=== PATIENT | female | born 1975 ===

== ENCOUNTER → 2022-06-13 12:52 | Outpatient (BNVA) | payer OTHER, SELFPAY | PROVIDERS: PCP Internal Medicine; Visit Provider Physician Assistant Surgical | DX: E66.01 Morbid (severe) obesity due to excess calories (principal); Z68.42 Body mass index [BMI] 45.0-49.9, adult | CPT/HCPCS: 99202 ==

== ENCOUNTER 2022-07-11 07:26 | Outpatient (REF) | payer OTHER, SELFPAY ==
--- NOTE | ~2022-07-11 | XR_ITS ---
EXAMINATION: XR CHEST CLINICAL INFORMATION: Morbid obesity COMPARISON: None TECHNIQUE: 2 views of the chest were obtained. FINDINGS: No significant abnormality is noted involving the heart, lungs, mediastinum, bony thorax or soft tissues. XR/XR chest 2V IMPRESSION: No acute disease.
--- NOTE | 2022-07-11 07:35 | ECG_ITS ---
Test Reason : obesity Blood Pressure : / mmHG Vent. Rate : 063 BPM Atrial Rate : 063 BPM P-R Int : 178 ms QRS Dur : 088 ms QT Int : 412 ms P-R-T Axes : 043 020 035 degrees QTc Int : 421 ms Normal sinus rhythm Normal ECG No previous ECGs available Referred By: Alejo Dugan Electronically Signed By:TED MARTINEZ
[2022-07-11 07:47] LABS: MANUAL DIFF FLAG NO
[2022-07-11 08:07] LABS: Basophils Percent Auto 0.3 % (0-2); Eosinophils Absolute Auto 0.1 X10*3/uL (0.0-0.4); Eosinophils Percent Auto 1.2 % (0-4); Hematocrit 38.2 % (37.0-47.0); Hemoglobin 12.4 g/dl (12.0-16.0); Imm Gran Abs Auto 0.02 X10*3/uL (0.00-0.03); Imm Gran Pct Auto 0.3 % (0.0-0.4); Lymphocytes Absolute Auto 1.1 X10*3/uL (1.2-4.9); Lymphocytes Percent Auto 18.5 % (20-40); Mean Corpuscular HGB Conc 32.5 g/dl (31.0-35.0); Mean Corpuscular Hemoglobin 26.5 pg (27.0-33.0); Mean Corpuscular Volume 81.6 fL (80.0-98.0); Mean Platelet Volume 9.8 fL (9.4-12.3); Monocytes Absolute Auto 0.4 X10*3/uL (0.1-1.2); Monocytes Percent Auto 6.8 % (2-11); Neutrophils Absolute Auto 4.3 x10*3/uL (2.0-8.3); Neutrophils Percent Auto 72.9 % (45-73); Platelet Count 214 X10*3/uL (160-400); Red Blood Count 4.68 X10*6/uL (4.20-5.50); Red Cell Distribution Width 14.8 % (11.0-16.0); White Blood Count 5.8 X10*3/uL (4.8-10.8)
[2022-07-11 08:34] LABS: Alanine Aminotransferase 13 U/L (0-31); Albumin Level 3.9 g/dL (3.5-5.0); Alkaline Phosphatase 98 U/L (39-117); Anion Gap 14 (12-20); Aspartate Amino Transferase 14 U/L (5-31); Bilirubin Total 0.4 mg/dL (0.0-1.0); Blood Urea Nitrogen 14 mg/dL (9-16); C Reactive Protein 0.98 mg/dL (< or = 0.50); Calcium 8.3 mg/dL (8.4-10.2); Carbon Dioxide 24 mmol/L (22-29); Chloride 105 mmol/L (96-108); Cholesterol 177 mg/dL; Estimated Glomerular Filt Rate > 60; Glucose Random 95 mg/dL (60-115); HDL Cholesterol 44 mg/dL; Iron 72 mcg/dL (30-160); LDL Cholesterol Calculated 122 mg/dl; Percent Iron Saturation 25 % (15-50); Potassium 3.9 mmol/L (3.3-5.1); Sodium 139 mmol/L (135-145); Total Iron Binding Capacity 290 mcg/dL (228-428); Total Protein 6.8 g/dL (6.5-8.0); Triglycerides 57 mg/dL; Unsaturated Iron Binding 218 ug/dL
[2022-07-11 09:01] LABS: Ferritin 21 ng/mL (10-250); TSH reflex Free T4 1.27 uIU/mL (0.32-4.0); Vitamin D 25-OH Total 10.7 ng/mL (>30)
[2022-07-11 09:07] LABS: Folate 11.2 ng/mL (> or = 4.0); Vitamin B12 361 pg/mL (200-900)
[2022-07-11 09:25] LABS: Estimated Average Glucose 105 mg/dL; Hemoglobin A1c % 5.3 %
[2022-07-11 10:33] LABS: Insulin 8 uU/mL (2-29)
[2022-07-13 16:57] LABS: Calcium (PTHI) 8.4 mg/dL (8.6-10.2); PTHI 136 pg/mL (16-77)
[2022-07-16 05:56] LABS: Zinc 67 mcg/dL (60-130)
[2022-07-17 21:17] LABS: Vitamin A 31 mcg/dL (38-98)
[2022-07-18 12:17] LABS: Vitamin B1 <6 nmol/L (8-30)
== END 2022-07-11 07:27 | disposition home or self-care (01) ==
LOC: HO.XRAY 07:26
PROVIDERS: PCP Internal Medicine; Visit Provider Physician Assistant Surgical
DX: E66.01 Morbid (severe) obesity due to excess calories (principal)
CPT/HCPCS: 36415; 71046; 80053; 80061; 82306; 82607; 82728; 82746; 83013; 83036; 83525; 83540; 83970; 84425; 84443; 84590; 84630; 85025; 86140; 93005; 99211

== ENCOUNTER 2022-07-11 16:03 | Outpatient (REF) | payer OTHER, SELFPAY ==
[2022-07-12 11:47] LABS: H Pylori Breath Test Negative (Negative)
== END 2022-07-11 16:04 | disposition home or self-care (01) ==
LOC: HO.LNP 16:03
PROVIDERS: Visit Provider Physician Assistant Surgical
DX: Z13.89 Encounter for screening for other disorder (principal)
CPT/HCPCS: 83013

== ENCOUNTER 2022-08-06 09:09 | Outpatient (REF) | payer OTHER, SELFPAY ==
--- NOTE | ~2022-08-06 | US_ITS ---
EXAMINATION: US COMPLETE ABDOMEN WITH LIVER ELASTOGRAPHY CLINICAL INFORMATION: Morbid obesity due to excess calories COMPARISON: None. TECHNIQUE: Real-time imaging of the abdominal viscera. Noninvasive ultrasound liver fibrosis assessment is performed using Ruthann ElastPQ point quantification shear wave elastography (2D-SWE) with a C5-2 MHz transducer. Multiple elastography samples are obtained. FINDINGS: PANCREAS: Normal. ABDOMINAL AORTA: The proximal and distal aortic segments are normal in caliber. The mid aorta is obscured by gas. INFERIOR VENA CAVA: Visualized portions are normal. LIVER: The liver demonstrates normal shape with increased echogenicity. Borderline hepatomegaly. No solid lesion or intrahepatic biliary duct dilatation. Multiple hepatic cysts are identified. The largest measures up to 2.3 cm. The right lobe measures 19.1 cm in length. The left lobe measures 9.5 cm in length. Portal flow is towards the liver (hepatopetal). Shear wave liver elastography median stiffness is 1.8 m/s (reference: normal median stiffness is 1.3 m/s or less). IQR/median stiffness to assess sampling precision is 0.08 (reference: good quality data set is IQR/median stiffness of 0.15 or less). GALLBLADDER: Cholecystectomy. COMMON BILE DUCT: Dilated in caliber measuring 1 cm in diameter. RIGHT KIDNEY: Normal. No hydronephrosis. No renal calculi or focal parenchymal lesions. The kidney measures 10.2 cm in maximum dimension. LEFT KIDNEY: Normal. No hydronephrosis. No renal calculi or focal parenchymal lesions. The kidney measures 10.3 cm in maximum dimension. SPLEEN: Normal. The spleen measures 11.3 cm in maximum dimension. FREE FLUID: None. US/US abdomen comp w elastography IMPRESSION: 1. Borderline hepatomegaly with hepatic steatosis. 2. Liver elastography: Measurements are suggestive of compensated advanced chronic liver disease but need further test for confirmation. REFERENCE: Society of Radiologists in Ultrasound Liver Stiffness Thresholds (2020): LIVER STIFFNESS THRESHOLDS: *Liver Stiffness equal or less than 1.3 m/s: High probability of being normal. *Liver Stiffness less than 1.7 m/s: In the absence of other known clinical signs, rules out compensated advanced chronic liver disease. *Liver Stiffness 1.7-2.1 m/s: Suggestive of compensated advanced chronic liver disease but need further test for confirmation. *Liver Stiffness over 2.1 m/s: Rules in compensated advanced chronic liver disease. *Liver Stiffness over 2.4 m/s: Suggestive of clinically significant portal hypertension. QUALITY OF DATA SET: *IQR/Median value equal or less than 0.15 implies a quality data set. *IQR/Median value over 0.15 implies a poor quality data set. SIGNIFICANT CHANGE FROM PRIOR EXAM: Significant change if liver stiffness measurement is 10% or greater from prior exam. OTHER CONSIDERATIONS: The stage of liver fibrosis may be overestimated in the setting of acute hepatitis, liver inflammation, elevated liver function tests, hepatic vascular congestion, obstructive cholestasis, non-fasting state, and infiltrative diseases such as amyloidosis and lymphoma. In some patients with NAFLD, the liver stiffness thresholds for compensated advanced chronic liver disease may be lower. In causes other than viral hepatitis and NAFLD, liver stiffness thresholds are not well established.
--- NOTE | ~2022-08-06 | FL_ITS ---
EXAMINATION: XR FLUOROSCOPY UPPER GI WITH AIR CLINICAL INFORMATION: Obesity COMPARISON: None TECHNIQUE: Upper GI was performed using thin and thick barium and effervescent granules. FINDINGS: Esophageal motility is normal. No hernia or reflux is seen. There may be a small distal duodenal diverticulum. The stomach and duodenum are otherwise normal. No fold thickening, mass, ulcer or stricture is seen. FLUOROSCOPY TIME: 0.4 minutes DAP 4.1 clayton per centimeter squared. 20 saved fluoroscopic images. FL/FL upper GI w air IMPRESSION: Unremarkable examination.
== END 2022-08-06 09:10 | disposition home or self-care (01) ==
LOC: HO.US 09:09
PROVIDERS: Visit Provider Physician Assistant Surgical
DX: Z01.818 Encounter for other preprocedural examination (principal); E66.01 Morbid (severe) obesity due to excess calories
CPT/HCPCS: 74246; 76705; 76981

== ENCOUNTER → 2022-08-07 11:29 | Outpatient (BNVA) | payer OTHER, SELFPAY | PROVIDERS: PCP Internal Medicine; Visit Provider Dietitian, Registered | DX: E66.01 Morbid (severe) obesity due to excess calories (principal) | CPT/HCPCS: 97802 ==

== ENCOUNTER → 2024-05-03 15:32 | Outpatient (BNVA) | payer OTHER, SELFPAY | PROVIDERS: PCP Internal Medicine; Visit Provider Physician Assistant Surgical ==

== ENCOUNTER 2024-06-10 13:12 | Outpatient (AMB) | payer OTHER, SELFPAY ==
--- NOTE | 2024-06-10 13:00 | A.OFFVIS_ITS ---
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 [place]. She was in the program from june to july 2022. She left the program due to being scared and other peoples negativity. She heard about the program from her friend. Her goal is to lose weight and achieve a healthy lifestyle as well as to improve, if not resolve, obesity related medical conditions. She reports first being concerned about her weight over the last 1-2 years, highest weight to date was 265. Current weight is 263 with a BMI of 48.1. She has tried multiple methods of weight loss including fad diets without permanent results. She lives with her daughter and fiance. 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 She wakes at:?6 am, and goes to bed at?10 pm. Dinner is at 6 pm. Breakfast: skip or coffee w greek vanilla creamer or donut or waffle or toast AM snack: skip or donut or bread or muffin Lunch: ham and cheese sandwich or take out w chips PM snack: chips Dinner: rice beans, pork chops, air fryer wings, pasta, mac and cheese, pizza, nepalese food After dinner: ice cream, cake donuts, cookies Other snacks: chips, popcorn Liquids: 8 oz water daily, seltzer water, minute maid juice, iced tea Alcohol/marijuana/tobacco intake: no etoh, no cannabis, no tobacco Exercise: none, had gym membership at [employer] Has [employer] machine in her home. [facility] Surgical History History of section, classical Hx of tonsillectomy History of placement of ear tubes Hx of wisdom tooth extraction Hx of cholecystectomy Hx of breast reduction, elective Family History Mother Hypertension Chronic ear infection Arthritis High cholesterol Lung cancer Father High cholesterol Daughter Joint problem Heart murmur Telehealth Telehealth Telehealth Platform: Telephone Location of provider rendering services: practice address Location of patient: address on file Patient Identification confirmed using: Name, : Yes Telehealth method: voice only Patient verbally consented to treatment: Yes Patient verbally consented to billing insurance company: Yes Patient informed of any privacy concerns related to visit: Yes Minutes spent on Phone/Video with Pt.: 35 Assessment & Plan Assessment & Plan (1) Morbid obesity: Code(s): E66.01 - Morbid (severe) obesity due to excess calories Category: Medical Plan: This is a?48 yo female who will start our SWL program to prepare for bariatric surgery.? Blood work, CXR, ECG, Abd US and UGI have been ordered. She is being scheduled for initial consultations. She will start SWL classes and watch the first three videos before her next appointment. 1. You have been given a link to our software conchita ([employer]) to generate an individualized nutritional and exercise plan specific for you. Please send me a screenshot of the plans you will generate Meal to include lean meat (beef, fish, pork, turkey, chicken), or frisian yogurt, or egg whites, or beans with a salad with olive oil and fruits (berries, pears, apples, kiwi). Avoid salt, breads, potatoes, rice, pasta, desserts. 2. If you choose shakes, each shake would be drunk slowly, like coffee over a period of 2 hours. 3. If you choose bars, cut each bar in 4 pieces and eat each piece in 30 min to make each bar last 2 hours. 4. I emphasized the importance of measuring accurately the food portion and measure it when serving the food on a plate 5. The meal portions include a specific number of forks of meat (protein) and salad. You always eat the meat portion but you can replace up to half of salad/vegetables portion with rice, potatoes or pasta, or a fruit ?if you like. The less you do it the better weight loss will be. 6. One full-size fork is what can be scooped on the fork without falling aside and not what can be bit with the fork. Use regular forks like those you find in a typical restaurant. 7.? Please send me weight measurements from your body composition scale as soon as possible and then once a week. Always include your diet and exercise plan. The best time to weigh yourself is first thing in the morning after going to the bathroom. 8. The best choice for exercise would be elliptical at your home. You may also re-join [employer] to increase your availability to a pool and different cardio machines. Alternatively start walking outside daily, tracking calories with a goal of 300 calories per day, daily. You can download the conchita [employer] which can track your time, distance and calories while walking outside. You press start in the conchita when you start and then stop when you are finished. 9.?Goal is to lose at least 1.5-2 lbs per week, and about 10% before surgery, which is about 26 pounds 10. Please follow the diet plan exactly without any change. If you don't like something about the plan or you feel hungry you need to communicate with me so I can help you revise the plan. My cell phone number to communicate with me by text is [phone] Patient is morbidly obese and is not considered stable at this time.?I spent a total of 70 minutes reviewing/updating records, examining the patient and counseling the patient on weight management as detailed above. Orders: Orders Complete Blood Count Auto Diff Today E66.01 - Morbid (severe) obesity due to excess calories IRON PROFILE Today E66.01 - Morbid (severe) obesity due to excess calories Vitamin B12 and Folate Today E66.01 - Morbid (severe) obesity due to excess calories Zinc Today E66.01 - Morbid (severe) obesity due to excess calories C Reactive Protein Today E66.01 - Morbid (severe) obesity due to excess calories Vitamin A Today E66.01 - Morbid (severe) obesity due to excess calories US abdomen comp w elastography Today E66.01 - Morbid (severe) obesity due to excess calories ECG 12 lead EKG Today E66.01 - Morbid (severe) obesity due to excess calories FL upper GI w air Today E66.01 - Morbid (severe) obesity due to excess calories Insulin Today E66.01 - Morbid (severe) obesity due to excess calories Hemoglobin A1c Today E66.01 - Morbid (severe) obesity due to excess calories Lipid Panel Today E66.01 - Morbid (severe) obesity due to excess calories Comprehensive Met. Panel Today E66.01 - Morbid (severe) obesity due to excess calories Vitamin B1 Today E66.01 - Morbid (severe) obesity due to excess calories TSH reflex Free T4 Today E66.01 - Morbid (severe) obesity due to excess calories Ferritin Today E66.01 - Morbid (severe) obesity due to excess calories Vitamin D 25-OH Total Today E66.01 - Morbid (severe) obesity due to excess calories XR chest 2V Today E66.01 - Morbid (severe) obesity due to excess calories Referrals Behavioral Health Referral E66.01 - Morbid (severe) obesity due to excess calories
[2024-06-10 13:03] VITALS: BMI 48.1
== END 2024-06-10 13:28 | disposition home or self-care (01) ==
LOC: HO.HBS 13:12
PROVIDERS: PCP Internal Medicine; Visit Provider Physician Assistant Surgical
DX: E66.01 Morbid (severe) obesity due to excess calories (principal); Z68.42 Body mass index [BMI] 45.0-49.9, adult
CPT/HCPCS: 99214

== ENCOUNTER → 2024-06-10 13:12 | Outpatient (BNVA) | payer OTHER, SELFPAY | PROVIDERS: PCP Internal Medicine; Visit Provider Physician Assistant Surgical ==

== ENCOUNTER 2024-06-22 15:11 | Outpatient (REF) | payer OTHER, SELFPAY ==
--- NOTE | ~2024-06-22 | XR_ITS ---
EXAMINATION: XR CHEST 2 VIEWS CLINICAL INFORMATION: Morbid obesity. COMPARISON: Chest radiographs dated 07/11/2022. TECHNIQUE: Frontal and lateral views of the chest were obtained. FINDINGS: The heart, great vessels, pulmonary vasculature and mediastinum are normal. The lungs show no focal infiltrate, effusion or pneumothorax. There is no acute osseous abnormality. XR/XR chest 2V IMPRESSION: No active cardiopulmonary disease. Electronically signed by: Darian Moser MD 07/20/2024 11:29 AM EDT
--- NOTE | 2024-06-22 15:19 | ECG_ITS ---
Test Reason : morbid obesity Blood Pressure : / mmHG Vent. Rate : 071 BPM Atrial Rate : 071 BPM P-R Int : 182 ms QRS Dur : 088 ms QT Int : 400 ms P-R-T Axes : 050 006 017 degrees QTc Int : 434 ms Normal sinus rhythm Normal ECG When compared with ECG of 11-JUL-2022 07:33, No significant change was found Referred By: Alejo Dugan Electronically Signed By:JAISON BLAIR
[2024-06-22 15:40] LABS: MANUAL DIFF FLAG NO
[2024-06-22 16:11] LABS: Basophils Percent Auto 0.5 % (0-2); Eosinophils Absolute Auto 0.1 X10*3/uL (0.0-0.4); Eosinophils Percent Auto 1.2 % (0-4); Hematocrit 34.6 % (37.0-47.0); Hemoglobin 11.2 g/dl (12.0-16.0); Imm Gran Abs Auto 0.01 X10*3/uL (0.00-0.03); Imm Gran Pct Auto 0.2 % (0.0-0.4); Lymphocytes Absolute Auto 1.4 X10*3/uL (1.2-4.9); Lymphocytes Percent Auto 23.7 % (20-40); Mean Corpuscular HGB Conc 32.4 g/dl (31.0-35.0); Mean Corpuscular Hemoglobin 25.7 pg (27.0-33.0); Mean Corpuscular Volume 79.4 fL (80.0-98.0); Mean Platelet Volume 9.9 fL (9.4-12.3); Monocytes Absolute Auto 0.5 X10*3/uL (0.1-1.2); Monocytes Percent Auto 8.1 % (2-11); Neutrophils Absolute Auto 3.8 x10*3/uL (2.0-8.3); Neutrophils Percent Auto 66.3 % (45-73); Platelet Count 246 X10*3/uL (160-400); Red Blood Count 4.36 X10*6/uL (4.20-5.50); Red Cell Distribution Width 15.4 % (11.0-16.0); White Blood Count 5.8 X10*3/uL (4.8-10.8)
[2024-06-22 16:16] LABS: Estimated Average Glucose 111 mg/dL; Hemoglobin A1c % 5.5 % (<6.0)
[2024-06-22 17:01] LABS: Alanine Aminotransferase 14 U/L (0-31); Albumin Level 3.9 g/dL (3.5-5.0); Alkaline Phosphatase 85 U/L (39-117); Anion Gap 10 (12-20); Aspartate Amino Transferase 13 U/L (5-31); Bilirubin Total 0.4 mg/dL (0.0-1.0); Blood Urea Nitrogen 13 mg/dL (9-16); C Reactive Protein 0.38 mg/dL (< or = 0.50); Calcium 9.2 mg/dL (8.4-10.2); Carbon Dioxide 27 mmol/L (22-29); Chloride 104 mmol/L (96-108); Cholesterol 173 mg/dL (<200); Estimated Glomerular Filt Rate > 60; Glucose Random 85 mg/dL (60-115); HDL Cholesterol 41 mg/dL (>40); Iron 35 mcg/dL (30-160); LDL Cholesterol Calculated 118 mg/dL (<100); Percent Iron Saturation 14 % (15-50); Potassium 3.6 mmol/L (3.3-5.1); Sodium 137 mmol/L (135-145); Total Iron Binding Capacity 245 mcg/dL (228-428); Total Protein 7.2 g/dL (6.5-8.0); Triglycerides 74 mg/dL (<150); Unsaturated Iron Binding 210 ug/dL
[2024-06-22 17:03] LABS: Ferritin 11 ng/mL (10-250); Insulin 8 uU/mL (2-29); TSH reflex Free T4 1.15 uIU/mL (0.32-4.0); Vitamin D 25-OH Total 14.1 ng/mL (>30)
[2024-06-22 17:19] LABS: Folate 9.9 ng/mL (> or = 4.0); Vitamin B12 371 pg/mL (200-900)
[2024-06-26 10:58] LABS: Vitamin B1 10 nmol/L (8-30)
[2024-06-26 15:39] LABS: Zinc 59 mcg/dL (60-130)
[2024-06-29 17:19] LABS: Vitamin A 30 mcg/dL (38-98)
== END 2024-06-22 15:12 | disposition home or self-care (01) ==
LOC: HO.XRAY 15:11
PROVIDERS: PCP Internal Medicine; Visit Provider Physician Assistant Surgical
DX: E66.01 Morbid (severe) obesity due to excess calories (principal)
CPT/HCPCS: 36415; 71046; 80053; 80061; 82306; 82607; 82728; 82746; 83036; 83525; 83540; 84425; 84443; 84590; 84630; 85025; 86140; 93005

== ENCOUNTER → 2024-06-22 15:19 | Outpatient (BNV) | payer OTHER, SELFPAY | PROVIDERS: PCP Internal Medicine; Visit Provider Internal Medicine | DX: E66.01 Morbid (severe) obesity due to excess calories (principal) | CPT/HCPCS: 93010 ==

== ENCOUNTER 2024-06-24 08:10 | Outpatient (REF) | payer OTHER, SELFPAY ==
--- NOTE | ~2024-06-24 | US_ITS ---
EXAMINATION: US COMPLETE ABDOMEN WITH LIVER ELASTOGRAPHY CLINICAL INFORMATION: Morbid obesity. COMPARISON: None available. TECHNIQUE: Real-time imaging of the abdominal viscera. Noninvasive ultrasound liver fibrosis assessment is performed using Ruthann ElastPQ point quantification shear wave elastography (pSWE) with a C5-2 MHz transducer. Multiple elastography samples are obtained. FINDINGS: PANCREAS: The visualized portions of the pancreas are unremarkable but a large portion of the gland is obscured by bowel gas. ABDOMINAL AORTA: The middle, and distal aortic segments are normal in caliber. Proximal aorta obscured by bowel gas. INFERIOR VENA CAVA: Visualized portions are normal. LIVER: Liver demonstrates increased echogenicity consistent with hepatic steatosis. Multiple benign cysts are seen in the right lobe of the liver, the largest measuring 2.8 cm. No solid focal lesion or intrahepatic biliary duct dilatation. The right lobe measures 16.0 cm in length. The left lobe measures 9.4 cm in length. Portal flow is towards the liver (hepatopetal). Shear wave liver elastography median stiffness is 1.55 m/s (reference: normal median stiffness is 1.3 m/s or less). Previously, this value was 1.80 m/s. IQR/median stiffness to assess sampling precision is 0.12 (reference: good quality data set is IQR/median stiffness of 0.15 or less). GALLBLADDER: Surgically removed. COMMON BILE DUCT: Normal in caliber measuring 0.6 cm in diameter. RIGHT KIDNEY: Normal. No hydronephrosis. No renal calculi or focal parenchymal lesions. The kidney measures 10.4 cm in maximum dimension. LEFT KIDNEY: Normal. No hydronephrosis. No renal calculi or focal parenchymal lesions. The kidney measures 11.1 cm in maximum dimension. SPLEEN: Normal. The spleen measures 11.1 cm in maximum dimension. FREE FLUID: None. US/US abdomen comp w elastography IMPRESSION: 1. Hepatic steatosis. 2. Liver Elastography: In the absence of other known clinical signs, measurements rule out compensated advanced chronic liver disease. If there are known clinical signs, further testing may be needed for confirmation. REFERENCE: Society of Radiologists in Ultrasound Liver Stiffness Thresholds (2020): LIVER STIFFNESS THRESHOLDS: *Liver Stiffness equal or less than 1.3 m/s: High probability of being normal. *Liver Stiffness less than 1.7 m/s: In the absence of other known clinical signs, rules out compensated advanced chronic liver disease. *Liver Stiffness 1.7-2.1 m/s: Suggestive of compensated advanced chronic liver disease but need further test for confirmation. *Liver Stiffness over 2.1 m/s: Rules in compensated advanced chronic liver disease. *Liver Stiffness over 2.4 m/s: Suggestive of clinically significant portal hypertension. QUALITY OF DATA SET: *IQR/Median value equal or less than 0.15 implies a quality data set. *IQR/Median value over 0.15 implies a poor quality data set. SIGNIFICANT CHANGE FROM PRIOR EXAM: Significant change if liver stiffness measurement is 10% or greater from prior exam. OTHER CONSIDERATIONS: The stage of liver fibrosis may be overestimated in the setting of acute hepatitis, liver inflammation, elevated liver function tests, hepatic vascular congestion, obstructive cholestasis, non-fasting state, and infiltrative diseases such as amyloidosis and lymphoma. In some patients with NAFLD, the liver stiffness thresholds for compensated advanced chronic liver disease may be lower. In causes other than viral hepatitis and NAFLD, liver stiffness thresholds are not well established. Electronically signed by: Carlos Mijares MD 07/14/2024 09:56 PM EDT
== END 2024-06-24 08:11 | disposition home or self-care (01) ==
LOC: HO.US 08:10
PROVIDERS: PCP Internal Medicine; Visit Provider Physician Assistant Surgical
DX: E66.01 Morbid (severe) obesity due to excess calories (principal)
CPT/HCPCS: 76700; 76981

== ENCOUNTER 2024-07-08 14:29 | Outpatient (AMB) | payer OTHER, SELFPAY ==
[2024-07-08 10:19] VITALS: BMI 46.5
--- NOTE | 2024-07-08 10:19 | MHC.OFFVISWM ---
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 She was seen to reestablish care within the Surgical weight loss program on 06/10/2024. At that time, her weight was 263 lb with a BMI of 48.1. Weight today is 254.4 lb with a BMI of 46.5. This corresponds to an 8.6 lb weight loss or 3.2% total body weight loss. She has been sick with URI sx. She was using the right bmi conchita for the first few weeks but not in the last week as she was feeling ill. Meal plan: Orgain 2 scoops in 8 oz almond milk shake atkins bar meal 9 forks protein and 9 forks salad bar Drinking 32-64 oz water Exercise plan: elliptical at home daily 15-20 min, [facility] Surgical History History of section, classical Hx of tonsillectomy History of placement of ear tubes Hx of wisdom tooth extraction Hx of cholecystectomy Hx of breast reduction, elective Family History Mother Hypertension Chronic ear infection Arthritis High cholesterol Lung cancer Father High cholesterol Daughter Joint problem Heart murmur Telehealth Telehealth Telehealth Platform: Telephone Location of provider rendering services: practice address Location of patient: address on file Patient Identification confirmed using: Name, : Yes Telehealth method: voice only Patient verbally consented to treatment: Yes Patient verbally consented to billing insurance company: Yes Patient informed of any privacy concerns related to visit: Yes Minutes spent on Phone/Video with Pt.: 15 Assessment & Plan Assessment & Plan (1) Morbid obesity: Code(s): E66.01 - Morbid (severe) obesity due to excess calories Category: Medical Plan: Patient is doing fairly well. She has been sick over the last week with upper respiratory symptoms. She is improving from this. She has however not followed the conchita as accurately or closely over the last 7-10 days. I encouraged her to go through the conchita again and to follow it exactly. I encouraged her to text weekly with her weight and with any questions or concerns. Additionally, she does state that she is using her elliptical machine and I suggested that she try to achieve a 300 calories burn per day, this likely will take anywhere from 45-60 minutes based upon her resistance. We will have her follow-up in the office in approximately 1 month
== END 2024-07-08 14:33 | disposition home or self-care (01) ==
LOC: HO.HBS 14:29
PROVIDERS: PCP Internal Medicine; Visit Provider Physician Assistant Surgical
DX: E66.01 Morbid (severe) obesity due to excess calories (principal)
CPT/HCPCS: 99213

== ENCOUNTER → 2024-07-08 14:29 | Outpatient (BNVA) | payer OTHER, SELFPAY | PROVIDERS: PCP Internal Medicine; Visit Provider Physician Assistant Surgical | DX: E66.01 Morbid (severe) obesity due to excess calories (principal) ==

== ENCOUNTER → 2024-07-27 12:31 | Outpatient (BNVA) | payer OTHER, SELFPAY | PROVIDERS: PCP Internal Medicine; Visit Provider Counselor Mental Health ==

== ENCOUNTER → 2024-07-27 12:31 | Outpatient (AMB) | payer OTHER, SELFPAY ==
--- NOTE | 2024-07-27 12:14 | A.OFFWM_ITS ---
Intake Intake Visit Reasons: VIDEO BH Intake Allergies No Known Allergies Allergy (Verified 05/04/24 07:51) PFSH Surgical History History of section, classical Hx of tonsillectomy History of placement of ear tubes Hx of wisdom tooth extraction Hx of cholecystectomy Hx of breast reduction, elective Family History Mother Hypertension Chronic ear infection Arthritis High cholesterol Lung cancer Father High cholesterol Daughter Joint problem Heart murmur Behavioral Health Assessment Weight Management Therapy Therapy Notes Details PT is a 48 years old Female, who presents for a visit to complete BH assessment as part of surgical weight loss program. Presenting Concerns Referral Source [facility]MP Provider. Saw MAKSIM on 06/10 initial weight 263Lbs. Reason for referral Completion of behavioral health assessment as part of process for weight-loss surgery. Precipitating Event Obesity, less energy and worsen physical functioning. Living Situation Current Living Situation Rent At risk of losing current housing? No Satisfied with current living situation? Yes Comments PT lives with her 11 y/o daughter. Food/Weight/Diet Expectations of change Initial Goal is to lose at least 1.5-2 Lbs per week, and about 10% before surgery, which is about 26 pounds Started on 06/10 at 263Lbs, then on 07/08 was 254Lbs, and today reported to be at 253Lbs. Patient goals are weight loss and maintance. She wants to be active and being able to keep up with PT is implementing the following: Current meal plan: 2 shakes, 1 meal, 2 bars. Exercise plan: burn 300 calories 5 days at week. However she is doing walks couple times at week. History/Relationship with food Example of meals before starting the program: Breakfast: Lunch: Dinner: Snacks: Drinks/Liquids: History/Relationship with weight In the last 10 years, the patient's Lowest weight was and highest Social History Family history and relationship in 2008. Now is engaged again. PT has 2 brothers. Dad alive, he lives in [place]. mother . PT reports good relationships. 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 Developmental history and status Learning disability growing up but not diagnosed until she was in college. Challenges with reading and comprehension. While in school she was an average student. Social support Fianc?, family. Community support None. 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 Cultural/Ethnic information Parents from [place]. She was born in [place], moved to [place] at age 8. PT is bilingual. Speaks Mohawk and Senegalese. Legal Involvement and History Current or historical involvement with the legal system? None reported. Education Highest grade completed HS and Certification in aesthetics. Preferred learning style Learn by doing and Visual Currently enrolled in educational program? No Interested in further educational program? Yes Educational Interests/Skills Talking, caring and helping people. 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 No Meaningful activities Family activities. Watch movies. Financial Situation Describe current financial situation Occasional struggle Financial assistance? Food [employer] Service Service? No Mental Health and Addiction Treatment Current/Past substance abuse? No Comments Alcohol: None 2 years ago. Mostly social when younger. Cigarettes/Tobacco: None Cannabis/Edibles: None Current/Past addictive behavior concerns? No Psychiatric history PT attended counseling in 2007 while going trough separation. She needs support leaving the relationship. Denies ever been diagnosed with any MH disorder. PT denies ever been in crisis or inpatient for mental health. There is no history and/or current concern about SI/SA and self-harm or other harm. Medical and Physical Health Summary Additional Medical History not covered in history None reported. Sexual History concerns None reported. Physical exam in the last year? Yes Pain Screening Current pain? No Pain in the last few months? No Medications Is the patient compliant with medications? Not applicable Does the patient have Dotson Guardian in place? Not applicable Does the patient use complimentary health approaches? No Trauma/Abuse History History of trauma? No Assessment & Plan Assessment & Plan (1) Morbid obesity: Code(s): E66.01 - Morbid (severe) obesity due to excess calories (2) Unspecified adjustment reaction: Code(s): F43.20 - Adjustment disorder, unspecified Plan PT not cleared yet. We will follow up on 08/12 at 2pm to continue assessment. PT will complete BH forms ext visit as she was not given them at initial visit to re-establish services. Telehealth Telehealth Telehealth Platform: [employer] Location of provider rendering services: other Location of patient: address on file Patient Identification confirmed using: Name, : Yes Telehealth method: voice only Patient verbally consented to treatment: Yes Patient verbally consented to billing insurance company: Yes Patient informed of any privacy concerns related to visit: No Minutes spent on Phone/Video with Pt.: 55 Coding Level of Care Code New Pt Tele Psy Diag Eval ([id number]) Patient Type New Diagnoses Morbid obesity E66.01 Unspecified adjustment reaction F43.20 Time Spent (min) 55 Comment 12:00 to 12:55pm
== END ==
PROVIDERS: PCP Internal Medicine; Visit Provider Counselor Mental Health
DX: E66.01 Morbid (severe) obesity due to excess calories (principal); F43.20 Adjustment disorder, unspecified
CPT/HCPCS: 90791